=== PATIENT | female | born 1945 | race Caucasian/White ===

== ENCOUNTER 2023-04-20 12:26 | Emergency (ER) | payer MEDICARE, OTHER ==
[2023-04-20] MEDS ORDERED: fentaNYL 100 MCG/2 ML SDV IM ONE (13:00)
[2023-04-20] MEDS ORDERED: ceFAZolin 1 GM Vial IM ONE (13:03)
[2023-04-20] MEDS ORDERED: Bupivacaine 0.25% 10 ML SDV INJECT ONE (13:55)
[2023-04-20] MEDS ORDERED: ceFAZolin 1 GM in Premix Bag 1 BAG IV ONE (14:00)
[2023-04-20] MEDS ORDERED: fentaNYL 100 MCG/2 ML SDV IVPUSH ONE (14:36)
[2023-04-20] MEDS ORDERED: Bacitracin Oint 1 GM U/D Packet TOP ONE (15:46)
== END 2023-04-20 16:26 | disposition home or self-care (01) ==
LOC: JP.ED 12:26 → MERGE 12:26 → JP.ED 16:26
DX: S68.110A Complete traumatic metacarpophalangeal amputation of right index finger, initial encounter (principal); Z88.2 Allergy status to sulfonamides; Z79.899 Other long term (current) drug therapy; W24.0XXA Contact with lifting devices, not elsewhere classified, initial encounter
CPT/HCPCS: 64450; 73140; 96365; 96375; 99283; J0690; J3010; J3490

== ENCOUNTER 2024-04-26 08:03 | Day surgery (SDC) | payer MEDICARE, OTHER ==
[~2024-04-26 08:03] MED LIST: Midazolam 1 MG/ML 2 ML SDV ONE; Propofol 200 MG/20 ML SDV ONE; fentaNYL 100 MCG/2 ML SDV ONE
[2024-04-26 08:26] LABS: BASOPHILS ABSOLUTE AUTO 0.04 K/uL (0.00-0.10); BASOPHILS PERCENT AUTO 0.7 % (0.1-1.3); EOSINOPHILS PERCENT AUTO 3.4 % (0.0-5.4); HEMATOCRIT 38.6 % (34.3-46.0); HEMOGLOBIN 12.7 g/dL (11.2-15.5); IMMATURE GRAN PERCENT AUTO 0.3 % (0.0-0.7); LYMPHOCYTES ABSOLUTE AUTO 1.99 K/uL (0.8-3.3); LYMPHOCYTES PERCENT AUTO 33.3 % (11.4-47.7); MEAN CORPUSCULAR HGB CONC 32.9 g/dL (31.6-35.5); MONOCYTES ABSOLUTE AUTO 0.59 K/uL (0.20-0.90); MONOCYTES PERCENT AUTO 9.9 % (3.3-12.6); NEUTROPHILS ABSOLUTE AUTO 3.13 K/uL (1.0-7.6); NEUTROPHILS PERCENT AUTO 52.4 % (40.0-78.1); PLATELET COUNT,PLT 244 K/uL (130-375); RED BLOOD CELL COUNT 4.24 M/uL (3.77-5.24)
[2024-04-26 08:29] LABS: IMMATURE GRAN ABSOLUTE AUTO 0.02 K/uL (0.00-0.23)
[2024-04-26] MEDS: Nozin Nasal Sanitizer NASBOTH ONE (08:45)
[2024-04-26] MEDS: Lactated Ringers 1,000 ML IV SCH (08:46)
[2024-04-26] MEDS: ceFAZolin 1 GM in Premix Bag 1 BAG IV ONE (08:46)
[2024-04-26 08:47] LABS: A/G RATIO 1.2 (1.2-2.2); ALANINE AMINOTRANSFERASE,ALT 16 U/L (12-78); ALBUMIN 4.1 g/dL (3.4-5.0); ALKALINE PHOSPHATASE 59 U/L (46-116); ANION GAP 9.5 mmol/L (5.0-14.0); ASPARTATE AMNIOTRANSFERASE,AST 15 U/L (15-37); BILIRUBIN TOTAL 0.7 mg/dL (0.2-1.0); BLOOD UREA NITROGEN,BUN 22 mg/dL (7-18); CALCIUM 9.3 mg/dL (8.5-10.1); CARBON DIOXIDE,CO2 29 mmol/L (21-32); CHLORIDE,CL 103 mmol/L (100-108); CREATININE 1.1 mg/dL (0.6-1.0); EST CRCL DRUG DOSING (CG) 33.62 mL/min; ESTIMATED GFR 52 mL/min (>60); GLUCOSE RANDOM 95 mg/dL (74-106); POTASSIUM,K 3.9 mmol/L (3.6-5.2); PROTEIN TOTAL,TP 7.5 g/dL (6.4-8.2); SODIUM,NA 141 mmol/L (140-148)
[2024-04-26] MEDS: Bupivacaine 0.5% 50 ML MDV ONE (09:07)
== END 2024-04-26 11:25 | disposition home or self-care (01) ==
LOC: JP.SDS 08:03
PROVIDERS: ATTEND Specialist
DX: L72.0 Epidermal cyst (principal); N18.30 Chronic kidney disease, stage 3 unspecified; E78.5 Hyperlipidemia, unspecified; I49.5 Sick sinus syndrome; F32.A Depression, unspecified
CPT/HCPCS: 01810; 11421; 36415; 80053; 85025; 88304; A9270; J0665; J0689; J2704; J3010; J7120; J2250